=== PATIENT | female | born 1990 | race Caucasian/White ===

== ENCOUNTER 2019-09-04 04:48 | Inpatient (IN) | payer BC ==
[~2019-09-04 04:48] MED LIST: Bupivacaine 0.25% 10 ML SDV ONE
[2019-09-04] MEDS ORDERED: Lidocaine 1% 50 ML MDV INJECT ONE (17:04)
[2019-09-04] MEDS ORDERED: Sodium Chloride 0.9% 10 ML Syringe FLUSH PRN (17:04)
[2019-09-04] MEDS ORDERED: Ondansetron 4 MG/2 ML SDV IVPUSH PRN (17:04)
[2019-09-04] MEDS ORDERED: Oxytocin/Lactated Ringers 10 UNIT/1,000 ML BAG IV SCH ×2 (17:15)
[2019-09-04] MEDS: Lactated Ringers 1,000 ML IV SCH ×3 (18:00→23:53)
--- NOTE | 2019-09-04 18:02 | PCM.HP.2 ---
H&P History of Present Illness - General Date of Service: 09/04/19 Admit Problem/Dx: induction; labor and delivery Source of Information: Patient History Limitations: Reports: No Limitations - History of Present Illness Initial Comments - Free Text/Narative: Ms. Lili Díaz is a very pleasant 29 yo F who presents to L&D for induction, labor and delivery. She is a currently at 39-4 gestational age with an EVI per early U/S of 09/07/2019. She has been seeing Dr. Martin for her care with her last visit to him on 09/01/2019 in which her bishops score was 1-2cm dilated/80% effacement/soft/posterior/-3 station. She presents today with her , De, and is in NAD, afebrile. She admits to this being "pretty easy". denying any problems or conditions she has been managing during this . She denies having any contractions during the but admits to good movement as well as pressure in her pelvis. Occasionally she experiences some discomfort, admitting when the baby is moving around sometimes she experiences some numbness in her leg but does not admit to having pain. Additionally she has been experiencing some congestion as of her visit 09/01/2019 - she states to some SOB at times as well as congestion but denies any fevers, chills, rashes with it. At this time she doesn't have any more concerns or questions. She desires a TOLAC as well as epidural, both of which have been discussed at length with the patient by Dr. Martin. Given her past history of 2x section - she has been consented for anesthesia and surgery in the event her TOLAC is unsuccessful. OR and anesthesia aware. Past pregnancies: 1) Induced at 6 wks 07/30/2011 2) Live born male, 11/01/2013 at 41 wks GA, 9lbs 9oz via section - had C/S after was in labor for 3 days 3) Live born female, 08/08/2016 at 39-2 wks GA, 7lbs 14oz via section Past History: Denies gestational diabetes -refused to take 1-hr sugar test but admits to doing finger sticks and recording normal sugars for two weeks. Denies hypertension Denies asthma Allergies: NKDA Current medications: tylenol cold, vitamin [hx of fluoxetine - weaned down 2 months ago. feeling ok with her anxiousness now, initially had some symptoms of "mental fogginess" and "vision changes" U/S: [Aug 13, 2019] "single intrauterine fetus currently cephalic in presentation, growth is felt to be appropriate from previous ultrasound, normal ZACARIAS with no findings of placenta previa" Labs: - Blood type: O+ - Abs screen: negative - GBS: negative - CBC: [05/22/2019] -WBC: 13.56 -RBC: 3.81 -Hgb: 11.7 -Hct: 34.2 Planning on pumping and supplementing with formula - "doesn't feel like is a natural option for her" - Related Data Allergies/Adverse Reactions: Allergies Allergy/AdvReac Type Severity Reaction Status Date / Time No Known Allergies Allergy Verified 08/07/16 21:45 Home Medications: Home Meds Vit 90/Iron Fum/Folic [ Formula] 1 tab PO DAILY 06/16/14 [ History] Acetaminophen/HYDROcodone [[place] 325-5 MG] 1 tab PO Q6H PRN #20 tablet 08/11/16 [Rx] Docusate Sodium [Colace] 100 mg PO Q12H PRN #0 cap 08/11/16 [Rx] Clindamycin Phosphate 30 gm TP DAILY 09/04/19 [History] Past Medical History Gastrointestinal History: Reports: GERD 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 Induced 2011. HPV. Colposcopy 2014 Psychiatric History: Reports: Anxiety - Infectious Disease History Infectious Disease History: Reports: Human Papilloma Virus (HPV) Social & Family History - Family History Family Medical History: Noncontributory - Caffeine Use Caffeine Use: Reports: None H&P Review of Systems - Review of Systems: Review Of Systems: See Below General: Reports: No Symptoms HEENT: Reports: Sinus Congestion (see HPI - patient has taken tylenol cold with decongestant with partial relief) Pulmonary: Reports: Shortness of Breath (see HPI) Cardiovascular: Reports: No Symptoms Gastrointestinal: Reports: No Symptoms Genitourinary: Reports: No Symptoms Musculoskeletal: Reports: No Symptoms Skin: Reports: No Symptoms Psychiatric: Reports: No Symptoms Neurological: Reports: No Symptoms Hematologic/Lymphatic: Reports: No Symptoms Immunologic: Reports: No Symptoms Exam - Exam Exam: See Below - Vital Signs Weight: 170 lb - Exam General: Alert, Oriented HEENT: Conjunctiva Clear, Nares Patent, Pupils Equal, Pupils Reactive Neck: Supple, Trachea Midline Lungs: Clear to Auscultation, Normal Respiratory Effort Cardiovascular: Regular Rate, Regular Rhythm (No M,R,G), Normal S1, Normal S2 Back Exam: Normal Inspection Extremities: Normal Inspection, No Pedal Edema, Normal Capillary Refill Peripheral Pulses: 2+: Radial (L), Radial (R), Posterior Tibial (L), Posterior Tibial (R) Skin: Warm, Dry, Intact Neuro Extensive - Mental Status: Alert, Oriented x3, Normal Mood/Affect, Normal Cognition Psychiatric: Alert, Normal Affect, Normal Mood Problem List Initiated/Reviewed/Updated: Yes Assessment/Plan Comment:: IV access acquired and being maintained Diet - recommendation to eat lightly Labs to be drawn Continuous monitoring of baby throughout TOLAC Epidural desired If TOLAC is unsuccessful, pt aware and already consented to emergent C/S Pt made aware of plan and agreeable to the above. No questions or concerns at this time. - Mortality Measure Prognosis:: Good
[2019-09-04] MEDS ORDERED: diphenhydrAMINE 50 MG/ML SDV IVPUSH PRN (21:15)
[2019-09-04] MEDS ORDERED: Bupivacaine/fentaNYL/NS 100 ML Bag EPIDUR PRN (21:15)
[2019-09-04] MEDS ORDERED: fentaNYL 100 MCG/2 ML SDV EPIDUR PRN (21:15)
[2019-09-04] MEDS ORDERED: ePHEDrine 50 MG/ML SDV IVPUSH PRN (21:15)
--- NOTE | 2019-09-04 23:48 | PCM.PREANE ---
Preanesthetic Assessment - Procedure Proposed Procedure: epidural - Anesthesia/Transfusion/Family Hx Anesthesia History: Prior Anesthesia Without Reaction Family History of Anesthesia Reaction: No Transfusion History: No Prior Transfusion(s) - Review of Systems General: Fatigue Pulmonary: No Symptoms Cardiovascular: No Symptoms Gastrointestinal: Abdominal Pain (labor) Neurological: No Symptoms Other: Reports: None - Physical Assessment Height: 1.73 m Weight: 77.111 kg ASA Class: 2 Mental Status: Alert & Oriented x3 Airway Class: Mallampati = 1 Dentition: Reports: Normal Dentition Thyro-Mental Finger Breadths: 3 Mouth Opening Finger Breadths: 3 ROM/Head Extension: Full Lungs: Clear to Auscultation, Normal Respiratory Effort Cardiovascular: Regular Rate, Regular Rhythm - Lab Values: Laboratory Last Values WBC 12.25 K/mm3 (3.98-10.04) H 09/04/19 17:41 RBC 3.45 M/mm3 (3.98-5.22) L 09/04/19 17:41 Hgb 10.0 gm/dl (11.2-15.7) L D 09/04/19 17:41 Hct 30.9 % (34.1-44.9) L 09/04/19 17:41 MCV 89.6 fl (79.4-94.8) 09/04/19 17:41 MCH 29.0 pg (25.6-32.2) 09/04/19 17:41 MCHC 32.4 g/dl (32.2-35.5) 09/04/19 17:41 RDW Std Deviation 40.6 fL (36.4-46.3) 09/04/19 17:41 Plt Count 189 K/mm3 (182-369) 09/04/19 17:41 MPV 10.5 fl (9.4-12.3) 09/04/19 17:41 Neut % (Auto) 62.9 % (34.0-71.1) 09/04/19 17:41 Lymph % (Auto) 24.1 % (19.3-51.7) 09/04/19 17:41 [place] % (Auto) 10.4 % (4.7-12.5) 09/04/19 17:41 Eos % (Auto) 1.8 (0.7-5.8) 09/04/19 17:41 Baso % (Auto) 0.2 % (0.1-1.2) 09/04/19 17:41 Neut # (Auto) 7.71 K/mm3 (1.56-6.13) H 09/04/19 17:41 Lymph # (Auto) 2.95 K/mm3 (1.18-3.74) 09/04/19 17:41 [place] # (Auto) 1.27 K/mm3 (0.24-0.36) H 09/04/19 17:41 Eos # (Auto) 0.22 K/mm3 (0.04-0.36) 09/04/19 17:41 Baso # (Auto) 0.03 K/mm3 (0.01-0.08) 09/04/19 17:41 RPR Non-reactive (NONREACTIVE) 09/04/19 17:41 Blood Type O POSITIVE 09/04/19 17:41 Gel Antibody Screen Negative 09/04/19 17:41 - Allergies Allergies/Adverse Reactions: Allergies Allergy/AdvReac Type Severity Reaction Status Date / Time No Known Allergies Allergy Verified 08/07/16 21:45 - Anesthesia Plan Pre-Op Medication Ordered: None - Acknowledgements Anesthesia Type Planned: Epidural Pt an Appropriate Candidate for the Planned Anesthesia: Yes Alternatives and Risks of Anesthesia Discussed w Pt/Guardian: Yes Pt/Guardian Understands and Agrees with Anesthesia Plan: Yes PreAnesthesia Questionnaire Gastrointestinal History: Reports: GERD 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 Induced 2011. HPV. 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 (HPV) Other Infectious Disease History: none current - Past Surgical History HEENT Surgical History: Reports: Tonsillectomy - SUBSTANCE USE Smoking Status *Q: Never Smoker Second Hand Smoke Exposure: No Recreational Drug Use History: No - HOME MEDS Home Medications: Home Meds Vit 90/Iron Fum/Folic [ Formula] 1 tab PO DAILY 06/16/14 [ History] Acetaminophen/HYDROcodone [[place] 325-5 MG] 1 tab PO Q6H PRN #20 tablet 08/11/16 [Rx] Docusate Sodium [Colace] 100 mg PO Q12H PRN #0 cap 08/11/16 [Rx] Clindamycin Phosphate 30 gm TP DAILY 09/04/19 [History] - CURRENT (IN HOUSE) MEDS Current Meds: Current Medications Diphenhydramine HCl (Benadryl) 25 mg IVPUSH Q6H PRN PRN Reason: Itching Ephedrine Sulfate (Ephedrine Sulfate) 5 mg IVPUSH ASDIRECTED PRN PRN Reason: HYPOTENTSION Fentanyl (Sublimaze) 100 mcg EPIDUR Q3H PRN PRN Reason: Pain Last Admin: 09/04/19 23:17 Dose: 100 mcg Fentanyl/Bupivacaine HCl (Fentanyl/Bupivacaine/Ns 2 Mcg-0.125% 100 Ml) 0 ml EPIDUR CONTINUOUS PRN PRN Reason: Pain Last Admin: 09/04/19 23:18 Dose: 100 ml Lactated Ringer's (Ringers, Lactated) 1,000 mls @ 100 mls/hr IV ASDIRECTED KELSY Last Admin: 09/04/19 22:48 Dose: 100 mls/hr Oxytocin/Lactated Ringer's (Pitocin In Lr 10 Units/1,000 Ml) 10 unit in 1,000 mls @ 12 mls/hr IV TITRATE KELSY; Protocol Last Titration: 09/04/19 22:50 Dose: 11 munits/min, 66 mls/hr Oxytocin/Lactated Ringer's (Pitocin In Lr 10 Units/1,000 Ml) 10 unit in 1,000 mls @ 100 mls/hr IV .CONTINUOUS KELSY; Protocol Ondansetron HCl (Zofran) 4 mg IVPUSH Q4H PRN PRN Reason: Nausea/Vomiting Sodium Chloride (Saline Flush) 10 ml FLUSH ASDIRECTED PRN PRN Reason: Keep Vein Open Discontinued Medications Lidocaine HCl (Xylocaine 1%) 50 ml INJECT ONETIME ONE Stop: 09/04/19 17:05
[2019-09-05] MEDS ORDERED: Citric Acid/Sodium Citrate Solution 30 ML Cup ONE (04:34)
[2019-09-05] MEDS ORDERED: Ketorolac 30 MG/ML SDV ONE (05:07)
--- NOTE | 2019-09-05 05:26 | PCM.SN ---
- Free Text/Narrative Note: Delivery note: Ms. Lili Díaz is a very pleasant 29 yo F who presents to L&D for induction, labor and delivery. She is a currently at 39-4 gestational age with an EVI per early U/S of 09/07/2019. She has had 2 previous sections. First one for 9 pound AB done for CPD. She desired an attempt at trial of labor. After section for vaginal after section. She was assessed of the process, risks, benefits, follow-up and alternatives. She wished to proceed, signing consents for TOLAC for and for . Patient had an epidural in labor for analgesia. She progressed rapidly by approximately 0300 hrs. on 09/05/2019. to complete cervical dilation. Baby's presenting part was at +3 station. She been having more back pain and the decision was made to assist with vacuum extraction. She did not report any tearing sensation or significantly increased pain in the front lower aspect of her uterus/lower abdomen. Significant bleeding was noted. heart tones were reassuring throughout the entire labor. Vacuum extraction was discussed in detail the patient including risks, benefits, follow-up and alternatives of care including proceeding to an emergent section. Patient opted for the vacuum extraction delivery. Verbal consent was given to proceed. Lili delivered a crocker, viable, female named Virginia Sotelo at 0048 hours on 09/05/2019. The baby weighed 3590 g (7 pounds 14.6 ounces), delivered in a direct occiput anterior position with vacuum extraction assistance. scores were 8 and 9 and length was 21.0 inches. He was placed on mom's abdomen, nose and mouth bulb suctioned. Pitocin was increased to 500 mL an hour to increase uterine tone and decreased likelihood of bleeding. Patient had significant reduction in her discomfort with the delivery of the baby. She had a second-degree perineal laceration and a very slight superficial anterior labia minora laceration on the left side. The labial laceration was not sutured as it was not bleeding and had no anatomic distortion. Perineal laceration was repaired with 3-0 Monocryl in a routine fashion. Epidural analgesia was used for perineal anesthesia for the repair. Patient tolerated this very well. The placenta delivered in a Palmer presentation, appeared intact and complete and was discarded per patient desire. Cord had 3 vessels. Cord blood was obtained prior to the delivery of placenta. Estimated blood loss was 200 mL. Patient plans to pump and bottle feed. Condition: Good
[2019-09-05] MEDS ORDERED: Benzocaine/Menthol 20%-0.5% Spray 56 GM Canister TOP PRN (06:27)
[2019-09-05] MEDS ORDERED: Ketorolac 30 MG/ML SDV IVPUSH ONE (06:27)
[2019-09-05] MEDS ORDERED: Ibuprofen 600 MG Tab PO PRN (06:27)
[2019-09-05] MEDS: Witch Hazel Medicated Pads 40/Jar TOP PRN (06:35)
[2019-09-05] MEDS: Acetaminophen 325 MG Tab PO PRN ×3 (09:54→20:41)
[2019-09-05] MEDS: Ibuprofen 600 MG Tab PO PRN ×2 (12:03→18:06)
[2019-09-05] MEDS: Docusate Sodium 100 MG Cap PO SCH ×2 (12:06→20:41)
[2019-09-06] MEDS: Ibuprofen 600 MG Tab PO PRN ×4 (00:08→19:42)
--- NOTE | 2019-09-06 05:08 | PCM.PNPP ---
- General Info Date of Service: 09/06/19 Functional Status: Reports: Pain Controlled, Tolerating Diet, Ambulating, Urinating - Review of Systems General: Reports: No Symptoms Pulmonary: Reports: No Symptoms Cardiovascular: Reports: No Symptoms Gastrointestinal: Reports: Abdominal Pain (having cramping and upper abdominal pain) Genitourinary: Reports: No Symptoms Musculoskeletal: Reports: No Symptoms Neurological: Reports: No Symptoms - Patient Data Vital Signs - Most Recent: Last Vital Signs Temp 36.3 C 09/05/19 20:50 Pulse 81 09/05/19 20:50 Resp 17 09/05/19 20:50 BP 112/69 09/05/19 20:50 Pulse Ox 97 09/05/19 20:50 Weight - Most Recent: 77.111 kg I&O - Last 24 Hours: Intake & Output 09/05/19 09/05/19 09/06/19 14:59 22:59 06:59 Intake Total 0 Balance 0 Med Orders - Current: Current Medications Acetaminophen (Tylenol) 650 mg PO Q4H PRN PRN Reason: mild pain or fever Last Admin: 09/05/19 20:41 Dose: 650 mg Benzocaine/Menthol (Dermoplast Pain Relief [place]) 0 gm TOP ASDIRECTED PRN PRN Reason: Perineal Comfort Measure Last Admin: 09/05/19 06:35 Dose: 1 can Docusate Sodium (Colace) 100 mg PO BID KELSY Last Admin: 09/05/19 20:41 Dose: 100 mg Ibuprofen (Motrin) 600 mg PO Q4H PRN PRN Reason: Mild pain or fever Last Admin: 09/06/19 00:08 Dose: 600 mg Witch [place] (Tucks) 1 pad TOP ASDIRECTED PRN PRN Reason: Pain Last Admin: 09/05/19 06:35 Dose: 1 tub Discontinued Medications Bupivacaine HCl (Sensorcaine-Mpf 0.25%) 10 ml .ROUTE .STK-MED ONE Stop: 09/04/19 00:01 Citric Acid/Sodium Citrate (Bicitra Solution) Confirm Administered Dose 30 ml .ROUTE .STK-MED ONE Stop: 09/05/19 04:35 Last Admin: 09/05/19 12:36 Dose: Not Given Diphenhydramine HCl (Benadryl) 25 mg IVPUSH Q6H PRN PRN Reason: Itching Ephedrine Sulfate (Ephedrine Sulfate) 5 mg IVPUSH ASDIRECTED PRN PRN Reason: HYPOTENTSION Fentanyl (Sublimaze) 100 mcg EPIDUR Q3H PRN PRN Reason: Pain Last Admin: 09/04/19 23:17 Dose: 100 mcg Fentanyl/Bupivacaine HCl (Fentanyl/Bupivacaine/Ns 2 Mcg-0.125% 100 Ml) 0 ml EPIDUR CONTINUOUS PRN PRN Reason: Pain Last Admin: 09/04/19 23:18 Dose: 100 ml Lactated Ringer's (Ringers, Lactated) 1,000 mls @ 100 mls/hr IV ASDIRECTED KELSY Last Admin: 09/04/19 23:53 Dose: 100 mls/hr Oxytocin/Lactated Ringer's (Pitocin In Lr 10 Units/1,000 Ml) 10 unit in 1,000 mls @ 12 mls/hr IV TITRATE KELSY; Protocol Last Titration: 09/05/19 04:24 Dose: 17 munits/min, 102 mls/hr Oxytocin/Lactated Ringer's (Pitocin In Lr 10 Units/1,000 Ml) 10 unit in 1,000 mls @ 100 mls/hr IV .CONTINUOUS KELSY; Protocol Last Admin: 09/05/19 05:23 Dose: 500 mls/hr Ibuprofen (Motrin) 600 mg PO Q4H PRN PRN Reason: Mild pain or fever Ketorolac Tromethamine (Toradol) Confirm Administered Dose 30 mg .ROUTE .STK- MED ONE Stop: 09/05/19 05:08 Last Admin: 09/05/19 05:12 Dose: 30 mg Ketorolac Tromethamine (Toradol) 30 mg IVPUSH ONETIME ONE Stop: 09/05/19 06:28 Last Admin: 09/05/19 09:53 Dose: Not Given Lidocaine HCl (Xylocaine 1%) 50 ml INJECT ONETIME ONE Stop: 09/04/19 17:05 Last Admin: 09/05/19 12:36 Dose: Not Given Ondansetron HCl (Zofran) 4 mg IVPUSH Q4H PRN PRN Reason: Nausea/Vomiting Sodium Chloride (Saline Flush) 10 ml FLUSH ASDIRECTED PRN PRN Reason: Keep Vein Open - Infant Interaction Disposition, : [place] in Room with Family Infant Interaction: Holding Feeding: Attempted ; Nursed Fair/Poor Support Person: - Recovery Exam Fundal Tone: Firm Fundal Level: 1 Fingerbreadths Below Umbilicus Fundal Placement: Midline Lochia Amount: Small Lochia Color: Rubra/Red Episiotomy/Laceration: Approximated Bladder Status: Voiding Urinary Elimination: Voided - Exam General: Alert, Oriented, Cooperative GI/Abdominal Exam: Soft, Non-Tender Extremities: Normal Inspection - Problem List & Annotations (1) , delivered, current hospitalization SNOMED Code(s): 313189531 Code(s): O34.219 - MATERNAL CARE FOR UNSP TYPE SCAR FROM PREVIOUS DEL Status: Acute Current Visit: Yes (2) 39 weeks gestation of SNOMED Code(s): 87459427 Code(s): Z3A.39 - 39 WEEKS GESTATION OF Status: Acute Current Visit: No - Problem List Review Problem List Initiated/Reviewed/Updated: Yes - Assessment Assessment:: PPD#1 - Plan Plan:: Routine cares Breast feeding / pumping Patient will discharge tomorrow as baby required to stay for further monitoring per Peds recommendations
[2019-09-06] MEDS: Acetaminophen 325 MG Tab PO PRN ×3 (05:16→16:36)
[2019-09-06] MEDS: Docusate Sodium 100 MG Cap PO SCH ×3 (11:15→22:48)
[2019-09-07] MEDS: Acetaminophen 325 MG Tab PO PRN (01:47)
[2019-09-07 07:43] VITALS: BP 108/69; PULSE 82
--- NOTE | 2019-09-07 07:47 | PCM.DCSUM1 ---
Discharge Summary - Discharge Data Discharge Date: 09/07/19 Discharge Disposition: Home, Self-Care 01 Condition: Good - Referral to Home Health Primary Care Physician: Kimberley Palomino NP - Discharge Diagnosis/Problem(s) (1) , delivered, current hospitalization SNOMED Code(s): 576260339 ICD Code: O34.219 - MATERNAL CARE FOR UNSP TYPE SCAR FROM PREVIOUS DEL Status: Acute Current Visit: Yes (2) 39 weeks gestation of SNOMED Code(s): 19290628 ICD Code: Z3A.39 - 39 WEEKS GESTATION OF Status: Acute Current Visit: No - Patient Summary/Data Complications: None Consults: None Recommended Follow-up Testing/Procedures: Follow up in 2 weeks for check Hospital Course: 29 y/o at 39 4/7 wks who presented for planned IOL/TOLAC in setting of 2 prior c-sections. Induction done with pitocin and AROM. Progressed well to complete dilation and underwent an uncomplicated . See delivery note. did well. Was discharged home on PPD#2 - Patient Instructions Diet: Regular Diet as Tolerated Activity: As Tolerated Activity, Other: Pelvic rest Driving: May Drive Today Showering/Bathing: May Shower Showering/Bathing, Other: May Bathe Notify Provider of: Fever, Increased Pain, Swelling and Redness, Drainage, Nausea and/or Vomiting - Discharge Plan *PRESCRIPTION DRUG MONITORING PROGRAM REVIEWED*: No *COPY OF PRESCRIPTION DRUG MONITORING REPORT IN PATIENT CHYNA: No Home Medications: Home Meds Vit 90/Iron Fum/Folic [ Formula] 1 tab PO DAILY 06/16/14 [ History] Docusate Sodium [Colace] 100 mg PO Q12H PRN #0 cap 08/11/16 [Rx] Ibuprofen [Motrin] 600 mg PO Q4H PRN tablet 09/05/19 [Rx] Referrals: Mejia Martin MD [Physician] - (2 weeks) - Discharge Summary/Plan Comment DC Time >30 min.: No - Patient Data Vitals - Most Recent: Last Vital Signs Temp 36.5 C 09/07/19 07:36 Pulse 82 09/07/19 07:36 Resp 20 09/07/19 07:36 BP 108/69 09/07/19 07:36 Pulse Ox 96 09/07/19 07:36 Weight - Most Recent: 77.111 kg I&O - Last 24 hours: Intake & Output 09/06/19 09/07/19 09/07/19 22:59 06:59 14:59 Intake Total 180 Balance 180 Med Orders - Current: Current Medications Acetaminophen (Tylenol) 650 mg PO Q4H PRN PRN Reason: mild pain or fever Last Admin: 09/07/19 01:47 Dose: 650 mg Benzocaine/Menthol (Dermoplast Pain Relief [place]) 0 gm TOP ASDIRECTED PRN PRN Reason: Perineal Comfort Measure Last Admin: 09/05/19 06:35 Dose: 1 can Docusate Sodium (Colace) 100 mg PO BID KELSY Last Admin: 09/06/19 22:48 Dose: Not Given Ibuprofen (Motrin) 600 mg PO Q4H PRN PRN Reason: Mild pain or fever Last Admin: 09/06/19 19:42 Dose: 600 mg Witch [place] (Tucks) 1 pad TOP ASDIRECTED PRN PRN Reason: Pain Last Admin: 09/05/19 06:35 Dose: 1 tub Discontinued Medications Bupivacaine HCl (Sensorcaine-Mpf 0.25%) 10 ml .ROUTE .[facility]-MED ONE Stop: 09/04/19 00:01 Citric Acid/Sodium Citrate (Bicitra Solution) Confirm Administered Dose 30 ml .ROUTE .[facility]-MED ONE Stop: 09/05/19 04:35 Last Admin: 09/05/19 12:36 Dose: Not Given Diphenhydramine HCl (Benadryl) 25 mg IVPUSH Q6H PRN PRN Reason: Itching Ephedrine Sulfate (Ephedrine Sulfate) 5 mg IVPUSH ASDIRECTED PRN PRN Reason: HYPOTENTSION Fentanyl (Sublimaze) 100 mcg EPIDUR Q3H PRN PRN Reason: Pain Last Admin: 09/04/19 23:17 Dose: 100 mcg Fentanyl/Bupivacaine HCl (Fentanyl/Bupivacaine/Ns 2 Mcg-0.125% 100 Ml) 0 ml EPIDUR CONTINUOUS PRN PRN Reason: Pain Last Admin: 09/04/19 23:18 Dose: 100 ml Lactated Ringer's (Ringers, Lactated) 1,000 mls @ 100 mls/hr IV ASDIRECTED KELSY Last Admin: 09/04/19 23:53 Dose: 100 mls/hr Oxytocin/Lactated Ringer's (Pitocin In Lr 10 Units/1,000 Ml) 10 unit in 1,000 mls @ 12 mls/hr IV TITRATE KELSY; Protocol Last Titration: 09/05/19 04:24 Dose: 17 munits/min, 102 mls/hr Oxytocin/Lactated Ringer's (Pitocin In Lr 10 Units/1,000 Ml) 10 unit in 1,000 mls @ 100 mls/hr IV .CONTINUOUS KELSY; Protocol Last Admin: 09/05/19 05:23 Dose: 500 mls/hr Ibuprofen (Motrin) 600 mg PO Q4H PRN PRN Reason: Mild pain or fever Ketorolac Tromethamine (Toradol) Confirm Administered Dose 30 mg .ROUTE .STK- MED ONE Stop: 09/05/19 05:08 Last Admin: 09/05/19 05:12 Dose: 30 mg Ketorolac Tromethamine (Toradol) 30 mg IVPUSH ONETIME ONE Stop: 09/05/19 06:28 Last Admin: 09/05/19 09:53 Dose: Not Given Lidocaine HCl (Xylocaine 1%) 50 ml INJECT ONETIME ONE Stop: 09/04/19 17:05 Last Admin: 09/05/19 12:36 Dose: Not Given Ondansetron HCl (Zofran) 4 mg IVPUSH Q4H PRN PRN Reason: Nausea/Vomiting Sodium Chloride (Saline Flush) 10 ml FLUSH ASDIRECTED PRN PRN Reason: Keep Vein Open
--- NOTE | 2019-09-07 07:47 | PCM.PNPP ---
- General Info Date of Service: 09/07/19 Functional Status: Reports: Pain Controlled, Tolerating Diet, Ambulating, Urinating - Review of Systems General: Reports: No Symptoms Pulmonary: Reports: No Symptoms Cardiovascular: Reports: No Symptoms Gastrointestinal: Reports: Abdominal Pain (still having some upper abdominal pain ) Genitourinary: Reports: No Symptoms Musculoskeletal: Reports: No Symptoms Neurological: Reports: No Symptoms - Patient Data Vital Signs - Most Recent: Last Vital Signs Temp 36.5 C 09/07/19 07:36 Pulse 82 09/07/19 07:36 Resp 20 09/07/19 07:36 BP 108/69 09/07/19 07:36 Pulse Ox 96 09/07/19 07:36 Weight - Most Recent: 77.111 kg I&O - Last 24 Hours: Intake & Output 09/06/19 09/07/19 09/07/19 22:59 06:59 14:59 Intake Total 180 Balance 180 Med Orders - Current: Current Medications Acetaminophen (Tylenol) 650 mg PO Q4H PRN PRN Reason: mild pain or fever Last Admin: 09/07/19 01:47 Dose: 650 mg Benzocaine/Menthol (Dermoplast Pain Relief Aguirre) 0 gm TOP ASDIRECTED PRN PRN Reason: Perineal Comfort Measure Last Admin: 09/05/19 06:35 Dose: 1 can Docusate Sodium (Colace) 100 mg PO BID KELSY Last Admin: 09/06/19 22:48 Dose: Not Given Ibuprofen (Motrin) 600 mg PO Q4H PRN PRN Reason: Mild pain or fever Last Admin: 09/06/19 19:42 Dose: 600 mg Witch Nanette (Tucks) 1 pad TOP ASDIRECTED PRN PRN Reason: Pain Last Admin: 09/05/19 06:35 Dose: 1 tub Discontinued Medications Bupivacaine HCl (Sensorcaine-Mpf 0.25%) 10 ml .ROUTE .STK-MED ONE Stop: 09/04/19 00:01 Citric Acid/Sodium Citrate (Bicitra Solution) Confirm Administered Dose 30 ml .ROUTE .STK-MED ONE Stop: 09/05/19 04:35 Last Admin: 09/05/19 12:36 Dose: Not Given Diphenhydramine HCl (Benadryl) 25 mg IVPUSH Q6H PRN PRN Reason: Itching Ephedrine Sulfate (Ephedrine Sulfate) 5 mg IVPUSH ASDIRECTED PRN PRN Reason: HYPOTENTSION Fentanyl (Sublimaze) 100 mcg EPIDUR Q3H PRN PRN Reason: Pain Last Admin: 09/04/19 23:17 Dose: 100 mcg Fentanyl/Bupivacaine HCl (Fentanyl/Bupivacaine/Ns 2 Mcg-0.125% 100 Ml) 0 ml EPIDUR CONTINUOUS PRN PRN Reason: Pain Last Admin: 09/04/19 23:18 Dose: 100 ml Lactated Ringer's (Ringers, Lactated) 1,000 mls @ 100 mls/hr IV ASDIRECTED KELSY Last Admin: 09/04/19 23:53 Dose: 100 mls/hr Oxytocin/Lactated Ringer's (Pitocin In Lr 10 Units/1,000 Ml) 10 unit in 1,000 mls @ 12 mls/hr IV TITRATE KELSY; Protocol Last Titration: 09/05/19 04:24 Dose: 17 munits/min, 102 mls/hr Oxytocin/Lactated Ringer's (Pitocin In Lr 10 Units/1,000 Ml) 10 unit in 1,000 mls @ 100 mls/hr IV .CONTINUOUS KELSY; Protocol Last Admin: 09/05/19 05:23 Dose: 500 mls/hr Ibuprofen (Motrin) 600 mg PO Q4H PRN PRN Reason: Mild pain or fever Ketorolac Tromethamine (Toradol) Confirm Administered Dose 30 mg .ROUTE .STK- MED ONE Stop: 09/05/19 05:08 Last Admin: 09/05/19 05:12 Dose: 30 mg Ketorolac Tromethamine (Toradol) 30 mg IVPUSH ONETIME ONE Stop: 09/05/19 06:28 Last Admin: 09/05/19 09:53 Dose: Not Given Lidocaine HCl (Xylocaine 1%) 50 ml INJECT ONETIME ONE Stop: 09/04/19 17:05 Last Admin: 09/05/19 12:36 Dose: Not Given Ondansetron HCl (Zofran) 4 mg IVPUSH Q4H PRN PRN Reason: Nausea/Vomiting Sodium Chloride (Saline Flush) 10 ml FLUSH ASDIRECTED PRN PRN Reason: Keep Vein Open - Interaction Disposition, : in Room with Family Interaction: Holding Infant Feeding: Attempted ; Nursed Fair/Poor Support Person: - Recovery Exam Fundal Tone: Firm Fundal Level: 1 Fingerbreadths Below Umbilicus Fundal Placement: Midline Lochia Amount: Small Lochia Color: Rubra/Red Episiotomy/Laceration: Approximated Bladder Status: Voiding Urinary Elimination: Voided - Exam General: Alert, Oriented, Cooperative GI/Abdominal Exam: Soft, Non-Tender Extremities: Normal Inspection - Problem List & Annotations (1) , delivered, current hospitalization SNOMED Code(s): 973336469 Code(s): O34.219 - MATERNAL CARE FOR UNSP TYPE SCAR FROM PREVIOUS DEL Status: Acute Current Visit: Yes (2) 39 weeks gestation of SNOMED Code(s): 39495226 Code(s): Z3A.39 - 39 WEEKS GESTATION OF Status: Acute Current Visit: No - Problem List Review Problem List Initiated/Reviewed/Updated: Yes - Assessment Assessment:: PPD#2 - Plan Plan:: Routine cares Breast feeding / pumping Discharge today
[2019-09-07] MEDS: Docusate Sodium 100 MG Cap PO SCH ×2 (07:49→13:01)
[2019-09-07] MEDS: Ibuprofen 600 MG Tab PO PRN (07:49)
[2019-09-07] MEDS: Witch Hazel Medicated Pads 40/Jar TOP PRN (07:54)
== END 2019-09-07 12:45 | disposition home or self-care (01) | DRG 560 ==
LOC: JD.OB 04:48 → OBSVTOIN 09-05 04:48 → JD.OB 09-05 04:49
PROVIDERS: ADMIT Obstetrics & Gynecology; ATTEND Obstetrics & Gynecology
PROC: 10D07Z6 Extraction of Products of Conception, Vacuum, Via Natural or Artificial Opening (ICD-10-PCS; principal; 2019-09-05)
PROC: 0KQM0ZZ Repair Perineum Muscle, Open Approach (ICD-10-PCS; 2019-09-05)
PROC: 3E0R3BZ Introduction of Anesthetic Agent into Spinal Canal, Percutaneous Approach (ICD-10-PCS; 2019-09-05)
PROC: 10907ZC Drainage of Amniotic Fluid, Therapeutic from Products of Conception, Via Natural or Artificial Opening (ICD-10-PCS; 2019-09-05)
PROC: 3E033VJ Introduction of Other Hormone into Peripheral Vein, Percutaneous Approach (ICD-10-PCS; 2019-09-05)
DX: O34.219 Maternal care for unspecified type scar from previous cesarean delivery (principal); Z3A.39 39 weeks gestation of pregnancy; Z37.0 Single live birth; Z79.2 Long term (current) use of antibiotics; Z79.899 Other long term (current) drug therapy; O70.1 Second degree perineal laceration during delivery
CPT/HCPCS: 01967; 36415; 51702; 59025; 59409; 85025; 86592; 86850; 86900; 86901; A9270-GY; J1885; J2590; J3010; J3490; J7120